=== PATIENT | female | born 1955 | race Caucasian/White ===

== ENCOUNTER 2017-09-13 11:20 | Outpatient (CLI) | payer OTHER | END 2017-09-13 11:21 | disposition home or self-care (01) | LOC: DI 11:20 | PROVIDERS: ATTEND Physician Assistant Medical | DX: Q23.1 Congenital insufficiency of aortic valve (principal); I77.810 Thoracic aortic ectasia | CPT/HCPCS: 93306 ==

== ENCOUNTER 2018-08-01 12:56 | Outpatient (CLI) | payer MEDICARE, OTHER | END 2018-08-01 12:57 | disposition home or self-care (01) | LOC: DI 12:56 | PROVIDERS: ATTEND Physician Assistant Medical | DX: Q23.1 Congenital insufficiency of aortic valve (principal); I77.810 Thoracic aortic ectasia | CPT/HCPCS: 93306 ==

== ENCOUNTER 2019-01-08 11:22 | Outpatient (CLI) | payer MEDICARE, OTHER ==
--- NOTE | 2019-01-08 13:34 | XRAY Report ---
Reason: LBP Procedure Date: 01/08/2019 Accession Number: [id number] / [id number] Procedure: XR - Lumbar Spine Complete CPT Code: FULL RESULT: EXAM: LUMBOSACRAL SPINE RADIOGRAPHY EXAM DATE: 01/08/2019 11:56 AM. CLINICAL HISTORY: Lower back pain. COMPARISONS: LUMBAR SPINE COMPLETE 09/19/2013 12:16 PM. TECHNIQUE: 5 views. FINDINGS: Alignment: The visualized osseous neural foramina are patent on oblique views. No spondylolisthesis or scoliosis. Bones: Five knv-rnx-papinok lumbar vertebral bodies are present. No fractures or bone lesions. Disks: Normal. Disk heights are maintained. Facets: Mild lower lumbar spine facet degenerative changes. Sacroiliac Joints: Unremarkable. Soft Tissues: Normal. The visualized bowel gas pattern is normal. IMPRESSION: Mild degenerative changes. RADIA
== END 2019-01-08 11:23 | disposition home or self-care (01) ==
LOC: DI 11:22
PROVIDERS: ATTEND Family Medicine
DX: M47.9 Spondylosis, unspecified (principal)
CPT/HCPCS: 72110

== ENCOUNTER 2021-03-11 08:00 | Outpatient (CLI) | payer MEDICARE, OTHER ==
--- NOTE | 2021-03-11 16:47 | XRAY Report ---
PROCEDURE: Finger(s) LT INDICATIONS: LEFT THUMB PAIN TECHNIQUE: AP hand, 3 views of the left finger(s) acquired. COMPARISON: None. FINDINGS: No acute fracture. Mild first CMC and triscaphe osteoarthritis. No marginal lucencies to suggest eros ions identified. Soft tissues grossly unremarkable. IMPRESSION: Mild degenerative changes as above. If the patient's pain or other symptoms persist, consider further evaluation with MRI. Reviewed by: Fantasma Doherty MD on 03/11/2021 4:45 PM PDT Approved by: Fantasma Doherty MD on 03/11/2021 4:45 PM PDT Station ID: [id number]
== END 2021-03-11 23:59 | disposition home or self-care (01) ==
LOC: DI.S 08:00
PROVIDERS: ATTEND Emergency Medicine
DX: M79.645 Pain in left finger(s) (principal); M18.12 Unilateral primary osteoarthritis of first carpometacarpal joint, left hand

== ENCOUNTER 2021-06-18 07:23 | Outpatient (CLI) | payer MEDICARE, OTHER ==
--- NOTE | 2021-06-18 12:43 | XRAY Report ---
PROCEDURE: Finger(s) LT INDICATIONS: LEFT THUMB PAIN TECHNIQUE: AP hand, 2 views of the left thumb COMPARISON: None FINDINGS: Bones: No fractures or dislocations. No suspicious bony lesions. Soft tissues: No suspicious soft tissue calcifications. IMPRESSION: No acute abnormality of the left thumb. Reviewed by: Chema Palacios on 06/18/2021 12:42 PM PDT Approved by: Chema Palacios on 06/18/2021 12:42 PM PDT Station ID: [id number]
== END 2021-06-18 23:59 | disposition home or self-care (01) ==
LOC: DI.N 07:23
PROVIDERS: ATTEND Physician Assistant
DX: M79.645 Pain in left finger(s) (principal)

== ENCOUNTER 2021-08-25 12:49 | Outpatient (CLI) | payer MEDICARE, OTHER ==
--- NOTE | 2021-08-25 22:10 | DEXA Report ---
PROCEDURE: Dexa Spine and/or Hip INDICATIONS: POST MENOPAUSAL, OSTEOPOROSIS TECHNIQUE: Dual energy x-ray absorptiometry (DXA) was performed on a [employer] System. Regions measur ed are the AP Spine, femoral neck, and if needed forearm. COMPARISON: 08/24/2017 FINDINGS: Lumbar Spine: Bone Mineral Density 0.836 g/cm/cm,T score -2.9, osteoporosis Left Hip: Bone Mineral Density 0.850 g/cm/cm,T score -1.2, osteopenia Left Femoral Neck: Bone Mineral Density 0.737 g/cm/cm, T score -2.2, osteoporosis Impression: Osteoporosis. Patients with diagnosis of osteoporosis or osteopenia should have regular bone mineral density assess ment. For those eligible for Medicare, routine testing is allowed once every 2 years. Testing frequ ency can be increased for patients who have rapidly progressing disease or for those who are receivin g medical therapy to restore bone mass. Reviewed by: Ray Roberts MD on 08/25/2021 10:09 PM PST Approved by: Ray Roberts MD on 08/25/2021 10:09 PM PST Station ID: [id number]
== END 2021-08-25 12:50 | disposition home or self-care (01) ==
LOC: DI 12:49
PROVIDERS: ATTEND Registered Nurse
DX: M81.0 Age-related osteoporosis without current pathological fracture (principal); Z78.0 Asymptomatic menopausal state

== ENCOUNTER 2022-02-02 16:11 | Outpatient (CLI) | payer MEDICARE, OTHER | END 2022-02-02 16:12 | disposition home or self-care (01) | LOC: LAB.S 16:11 | PROVIDERS: ATTEND Internal Medicine | DX: E03.9 Hypothyroidism, unspecified (principal) | CPT/HCPCS: 36415; 84443 ==

== ENCOUNTER 2022-05-18 13:53 | Outpatient (CLI) | payer MEDICARE, OTHER | END 2022-05-18 13:54 | disposition home or self-care (01) | LOC: LAB.S 13:53 | PROVIDERS: ATTEND Internal Medicine | DX: E03.9 Hypothyroidism, unspecified (principal) | CPT/HCPCS: 36415; 84443 ==

== ENCOUNTER 2022-08-26 14:51 | Outpatient (CLI) | payer MEDICARE, OTHER | END 2022-08-26 14:52 | disposition home or self-care (01) | LOC: LAB.S 14:51 | PROVIDERS: ATTEND Internal Medicine | DX: E03.9 Hypothyroidism, unspecified (principal) | CPT/HCPCS: 36415; 84443 ==

== ENCOUNTER 2023-01-11 15:01 | Outpatient (CLI) | payer MEDICARE, OTHER ==
--- NOTE | 2023-01-11 17:14 | XRAY Report ---
PROCEDURE: Hip w/Pelvis 2-3V RT INDICATIONS: HIP PAIN TECHNIQUE: AP pelvis with lateral view(s) of the right hip(s). COMPARISON: None. FINDINGS: Bones: No fractures or dislocations. Symmetric appearing bilateral hip joint osteoarthritic changes are seen with superior joint space narrowing and subchondral sclerosis. No evidence of avascular nec rosis of femoral head. Pelvic ring appears intact. No suspicious bony lesions. Soft tissues: The visualized bowel gas pattern is normal. No suspicious soft tissue calcifications. IMPRESSION: Symmetric mild to moderate bilateral hip joint osteoarthritis. No pelvic or hip fracture. No hip dislocation. No evidence of avascular necrosis. Reviewed by: Howard Aiken MD on 01/11/2023 5:12 PM PDT Approved by: Howard Aiken MD on 01/11/2023 5:12 PM PDT Station ID: [id number]
== END 2023-01-11 15:02 | disposition home or self-care (01) ==
LOC: DI 15:01
PROVIDERS: ATTEND Internal Medicine
DX: M16.0 Bilateral primary osteoarthritis of hip (principal)

== ENCOUNTER 2023-06-06 16:15 | Outpatient (CLI) | payer MEDICARE, OTHER ==
--- NOTE | 2023-06-06 17:22 | XRAY Report ---
PROCEDURE: Knee 3 View RT INDICATIONS: RIGHT KNEE PAIN TECHNIQUE: 3 views of the right knee(s) were acquired. COMPARISON: None. FINDINGS: Bones: No fractures or dislocations. No suspicious bony lesions. The knee joint spaces appear wel l-preserved. Soft tissues: There is a small right knee knee joint effusion. No suspicious soft tissue calcificati ons or masses. IMPRESSION: Small right knee joint effusion, without an acute bony abnormality identified. If it would be helpful for clinical management decision making, please consider a dedicated, schedule d knee MRI for further evaluation (assuming that there is no contraindication). Reviewed by: Blair Sargent MD on 06/06/2023 4:21 PM YEIMY Approved by: Blair Sargent MD on 06/06/2023 4:21 PM YEIMY Station ID: [id number]
== END 2023-06-06 23:59 | disposition home or self-care (01) ==
LOC: DI.S 16:15
PROVIDERS: ATTEND Physician Assistant Medical
DX: M25.561 Pain in right knee (principal); M25.461 Effusion, right knee

== ENCOUNTER 2023-06-14 21:06 | Outpatient (CLI) | payer MEDICARE, OTHER ==
--- NOTE | 2023-06-15 13:40 | Ultrasound Report ---
PROCEDURE: Duplex Ext Veins Right INDICATIONS: SWELLING RIGHT LOWER LEG TECHNIQUE: Real-time imaging, as well as color and pulse Doppler interrogation, were performed of the lower extr emity deep veins from the inguinal ligament to the popliteal fossa. Attempted visualization of the ca lf veins was performed. COMPARISON: None. FINDINGS: The deep veins are normally compressible, and free of intraluminal thrombus. Color and pu lse Doppler demonstrate normal phasic intraluminal flow. There is normal augmentation response to di stal compression maneuver. IMPRESSION: No deep venous thrombosis of the visualized lower extremity. Reviewed by: Preethi Bettencourt MD on 06/15/2023 1:39 PM PDT Approved by: Preethi Bettencourt MD on 06/15/2023 1:39 PM PDT Station ID: [id number]
== END 2023-06-14 21:07 | disposition home or self-care (01) ==
LOC: DI 21:06
PROVIDERS: ATTEND Physician Assistant Medical
DX: R22.41 Localized swelling, mass and lump, right lower limb (principal)

== ENCOUNTER 2023-06-23 15:00 | Outpatient (CLI) | payer MEDICARE, OTHER | END 2023-06-23 15:01 | disposition home or self-care (01) | LOC: DI 15:00 | PROVIDERS: ATTEND Internal Medicine | DX: Q23.1 Congenital insufficiency of aortic valve (principal); I77.810 Thoracic aortic ectasia | CPT/HCPCS: 93306 ==

== ENCOUNTER 2023-09-03 14:26 | Emergency (ER) | payer MEDICARE, OTHER ==
--- NOTE | 2023-09-03 16:08 | ED Physician Documentation ---
PD HPI LOWER EXT INJURY - Stated complaint Stated Complaint: RT KNEE PX - Chief complaint Chief Complaint: Ext Problem - History obtained from History obtained from: Patient - History of Present Illness PD HPI LOW EXT INJURY LOCATION: Right - Additional information Additional information: 68-year-old female presents with right knee pain. The pain has been present for Years seemingly worse over the last several months. She has been seen several times for right sided pain in the hip, ankle and knee. She states she cannot really say if she has pain in the knee just her entire leg is uncomfortable although it is not new. She sustained no new injuries, no twists or falls. She has noted no new swelling, no erythema. She has been seen here as well as via her PCP for this issue and states that she has been referred to Ortho but does not have an appointment yet. did not take that she believes that she has to have an MRI but that too has not been scheduled. Patient takes occasional Tylenol, no other treatment for this issue. She was seen Several months ago for similar pain and had a negative right leg ultrasound as well as stable right knee x-ray. PD PAST MEDICAL HISTORY - Past Medical History Past Medical History: Yes Cardiovascular: None Respiratory: None Endocrine/Autoimmune: HyPOthyroidism GI: None : None HEENT: None Psych: None Musculoskeletal: None Derm: None - Past Surgical History Past Surgical History: Yes General: Colonoscopy HEENT: Tonsil/Adenoidectomy - Present Medications Home Medications: Ambulatory Orders Medication Instructions Recorded Confirmed Alprazolam [Xanax] 1 mg PO DAILY PRN 06/04/22 09/03/23 Levothyroxine Sodium [Synthroid] 175 mcg PO DAILY 09/03/23 09/03/23 Oxycodone HCl/Acetaminophen 1 - 2 each PO Q6H PRN #14 tablet 09/03/23 [Percocet 5-325 mg Tablet] buPROPion HCL [Wellbutrin Xl] 300 mg PO DAILY 09/03/23 09/03/23 predniSONE [Deltasone] 40 mg PO DAILY 5 Days #10 tablet 09/03/23 - Allergies Allergies/Adverse Reactions: Allergies Allergy/AdvReac Type Severity Reaction Status Date / Time No Known Drug Allergies Allergy Verified 09/03/23 14:42 - Social History Does the pt smoke?: No Smoking Status: Never smoker - POLST Patient has POLST: No PD ED PE NORMAL - Vitals Vital signs reviewed: Yes - General General: Alert and oriented X 3, No acute distress, Well developed/nourished - HEENT HEENT: Atraumatic, Moist mucous membranes - Derm Derm: Normal color, Warm and dry, No rash - Extremities Extremities: No deformity, No tenderness to palpate, No calf tenderness / cord, Other (There is no erythema of the right leg, no evidence deformity. She does not have tenderness to palpation of the leg but she does have tenderness with flexion extension. No obvious laxity, limited Raymond's test due to discomfort.) Results - Vitals Vitals: Vital Signs - 24 hr 09/03/23 09/03/23 14:42 16:07 Temperature 36.5 C 36.5 C Heart Rate 96 85 Respiratory 16 16 Rate Blood Pressure 120/63 113/71 O2 Saturation 100 99 Oxygen O2 Source Room air PD Medical Decision Making - ED course Complexity details: reviewed old records, considered differential, d/w patient ED course: 68-year-old female presents with chronic right leg pain, sometimes in the knee, hip or ankle. She sustained no acute injuries, no trauma. She has been evaluated several times in the past with stable x-rays negative ultrasound and Has been referred to orthopedic surgery And has seen her PCP for this issue. It appears that the pain is stable and nothing has changed, per say, but she is understandably frustrated by lack of progress. I have encouraged the patient to continue supportive measures, we talked about getting an assistive device at home as she does have a number of stairs to go up and down which may be causing exacerbation of her pain, recommended cool compress, Tylenol and ibuprofen, she could try topical pain reliever. I do believe she needs an MRI though this does not need to be done on an emergent basis and she can follow-up with PCP and Ortho for this. She was encouraged to schedule follow up with ortho as she has already been referred. She may benefit from physical therapy as well, and weight loss would likely be beneficial. Departure - Departure Disposition: 01 Home, Self Care Clinical Impression: Knee pain, right Qualifiers: Chronicity: chronic Qualified Code(s): M25.561 - Pain in right knee Condition: Good Instructions: Knee Pain Prescriptions: predniSONE [Deltasone] 40 mg PO DAILY 5 Days #10 tablet Oxycodone HCl/Acetaminophen [Percocet 5-325 mg Tablet] 1 - 2 each PO Q6H PRN #14 tablet PRN Reason: pain Comments: Please call to schedule follow up with ortho as previously planned. You may need an MRI but this does not need to be done emergently in the ER. I have given you a short course of prednisone and pain medication. Please try to elevate the leg, use a cool compress, and avoid stairs as much as you can for the next few weeks. I am prescribing a short course of narcotic pain medication for you. These are potentially dangerous and addictive medications that should be used carefully. These medications may constipate you. Take an zlzs-uem-vjehomw stool softener (docusate) twice daily with plenty of water while taking these medications. If you go 24 hours without a bowel movement, take efit-utd-kurrgqf miralax, per package instructions. Do not drink or drive while taking these medications. If you received narcotic or sedating medications while in the emergency department, do not drive for 24 hours. Store this medication in a safe, secure place and out of reach of children. It is a violation of federal law to give or sell this medication to another person or to use in a manner other than prescribed. The ED will not refill narcotic prescriptions, including prescriptions lost or stolen. To dispose of unwanted medications: 1. [facility] provides a drop box for medication in pill form only (no liquids) 8:00 am to 4:30 p.m. Tuesday-Tuesday in the lobby of the [facility], [address] [place] [address]. Empty pills into ziplock bag before disposal. Call [phone] for information. 2.[employer] is a free service available to all [facility] residents. Go to [email or web address] Note that many narcotic pain relievers also contain Tylenol/acetaminophen. Please ensure that your total dose of acetaminophen from all sources does not exceed 3 g (3000 mg) per day. Forms: PCP List Discharge Date/Time: 09/03/23 16:26
[2023-09-03 16:10] VITALS: BP 113/71; O2SAT 99
== END 2023-09-03 16:26 | disposition home or self-care (01) ==
LOC: ED 14:26
DX: M25.561 Pain in right knee (principal); E03.9 Hypothyroidism, unspecified; Z79.899 Other long term (current) drug therapy
CPT/HCPCS: 99282; 99283

== ENCOUNTER 2023-09-09 07:22 | Outpatient (CLI) | payer MEDICARE, OTHER ==
--- NOTE | 2023-09-09 09:23 | MRI Report ---
PROCEDURE: KNEE WO - RT INDICATIONS: RIGHT KNEE PAIN TECHNIQUE: Noncontrast sagittal PD fast spin echo and T2 fast spin echo with fat saturation, sagittal 3-D spoile d GE with fat saturation; coronal T1 spin echo and PD fast spin echo with fat saturation, and axial P D fast spin echo with fat saturation through the knee. COMPARISON: Right knee radiographs 06/06/2023 FINDINGS: Image quality: Excellent. Anterior cruciate ligament: Intact. Posterior cruciate ligament: Intact. Medial collateral ligament: Thickening the proximal medial collateral ligament without surrounding e douglas is most likely secondary to a remote prior low-grade sprain. Lateral collateral ligament: Intact. Medial meniscus: There is high-grade versus complete radial tearing of the medial meniscus at the po sterior root attachment without significant meniscal extrusion. Lateral meniscus: Intact. Medial and lateral tendons: The semimembranosus tendon insertions appear intact. Visualized portion s of the pes anserinus tendons appear normal. The popliteus tendon appears intact. Iliotibial band appears normal. Anterior structures: Mild patella naty. The distal quadriceps tendon is intact. No patellar subluxat ion. No significant femoral trochlear dysplasia or ventral trochlear prominence. Mild edema at supe rolateral aspect of the infrapatellar fat pad can be seen in the setting of lateral femoral condyle-p atellar tendon friction syndrome. Bones: No acute trabecular bone injury or fracture. Medial femorotibial cartilage: There is high-grade partial thickness cartilage irregularity in the w eightbearing portion of the medial femorotibial compartment with mild subchondral edema. Lateral femorotibial cartilage: Mild partial thickness cartilage irregularity is seen in the posteri or to far posterior portion of the lateral femorotibial compartment. Patellofemoral cartilage: There is deep cartilage fissuring at the median ridge of the patella coreen rning partial-thickness cartilage irregularity. Partial-thickness cartilage irregularity is seen in t he trochlear groove. Soft tissues: There is a small joint effusion. There is a small medial popliteal cyst. The musculat ure surrounding the knee is normal in bulk. There is mild nonspecific prepatellar subcutaneous soft t issue edema. IMPRESSION: 1.High-grade versus complete radial tearing at the medial meniscus at the posterior root attachment. No significant meniscal extrusion. 2.Remote prior grade 1 sprain of the proximal medial collateral ligament. 3.Mild patella naty. Mild edema at superolateral aspect of the infrapatellar fat pad can be seen in t he setting of lateral femoral condyle-patellar tendon friction syndrome. 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 Grade II chondromalacia is seen in the lateral and anterior compartments. 5.Small joint effusion. Small medial popliteal cyst. Reviewed by: Josh Srivastava MD on 09/09/2023 9:22 AM PST Approved by: Josh Srivastava MD on 09/09/2023 9:22 AM PST Station ID: [id number]
== END 2023-09-09 07:23 | disposition home or self-care (01) ==
LOC: DI 07:22
PROVIDERS: ATTEND Internal Medicine
DX: S83.241A Other tear of medial meniscus, current injury, right knee, initial encounter (principal); S83.411D Sprain of medial collateral ligament of right knee, subsequent encounter; M94.261 Chondromalacia, right knee; M25.461 Effusion, right knee; M71.21 Synovial cyst of popliteal space [Baker], right knee

== ENCOUNTER 2023-09-29 08:00 | Outpatient (CLI) | payer MEDICARE, OTHER ==
--- NOTE | 2023-09-29 13:24 | XRAY Report ---
PROCEDURE: Knee 2 View RT INDICATIONS: RIGHT KNEE PAIN, BILAT AP RIGHT TUNNEL ONLY TECHNIQUE: One view of the right knee was acquired. COMPARISON: None. FINDINGS: Bones: No fractures or dislocations. No suspicious bony lesions. Mild lateral subluxation of the tibia relative to the femur, resulting in narrowing of the medial aspect of the lateral compartment. Soft tissues: No knee joint effusion. No suspicious soft tissue calcifications or masses. IMPRESSION: Mild lateral subluxation of the tibia relative to the femur narrows the medial aspect of the lateral compartment. Reviewed by: Ton Mcghee MD on 09/29/2023 1:22 PM PST Approved by: Ton Mcghee MD on 09/29/2023 1:22 PM PST Station ID: [id number]
== END 2023-09-29 23:59 | disposition home or self-care (01) ==
LOC: DI.WOS 08:00
PROVIDERS: ATTEND Physician Assistant Surgical
DX: S83.141A Lateral subluxation of proximal end of tibia, right knee, initial encounter (principal)

== ENCOUNTER 2023-10-10 12:02 | Emergency (ER) | payer MEDICARE, OTHER ==
[2023-10-10 12:34] VITALS: BP 106/74; O2SAT 98
[2023-10-10] MEDS ORDERED: TETANUS/DIPHTHERIA/PERTUSSIS 0.5 ML SYRINGE IM ONE (12:38)
--- NOTE | 2023-10-10 12:40 | ED Physician Documentation ---
PD HPI LOWER EXT INJURY - Stated complaint Stated Complaint: RT FOOT PX - Chief complaint Chief Complaint: Ext Problem - History obtained from History obtained from: Patient - Additional information Additional information: 68-year-old female presents concerned that there may be a foreign body in her right foot. 2 days ago she was cleaning the kitchen and stepped on "something sharp", however she does not know what she stepped on. She reports that the area bled for a while and stopped, but it is sore and painful to walk on. She does not think she is up-to-date on her tetanus vaccination. Review of Systems Constitutional: denies: Fever, Chills Respiratory: denies: Dyspnea, Cough GI: denies: Abdominal Pain, Nausea, Vomiting Musculoskeletal: reports: Extremity pain. denies: Neck pain, Back pain, Joint pain, Extremity swelling PD PAST MEDICAL HISTORY - Past Medical History Cardiovascular: None Respiratory: None Endocrine/Autoimmune: HyPOthyroidism GI: None : None HEENT: None Psych: None Musculoskeletal: None Derm: None - Past Surgical History Past Surgical History: Yes General: Colonoscopy HEENT: Tonsil/Adenoidectomy - Present Medications Home Medications: Ambulatory Orders Medication Instructions Recorded Confirmed Alprazolam [Xanax] 1 mg PO DAILY PRN 06/04/22 09/03/23 Levothyroxine Sodium [Synthroid] 175 mcg PO DAILY 09/03/23 09/03/23 Oxycodone HCl/Acetaminophen 1 - 2 each PO Q6H PRN #14 tablet 09/03/23 [Percocet 5-325 mg Tablet] buPROPion HCL [Wellbutrin Xl] 300 mg PO DAILY 09/03/23 09/03/23 predniSONE [Deltasone] 40 mg PO DAILY 5 Days #10 tablet 09/03/23 - Allergies Allergies/Adverse Reactions: Allergies Allergy/AdvReac Type Severity Reaction Status Date / Time No Known Drug Allergies Allergy Verified 09/03/23 14:42 - Social History Does the pt smoke?: No Smoking Status: Never smoker - POLST Patient has POLST: No PD ED PE NORMAL - Vitals Vital signs reviewed: Yes - General General: Alert and oriented X 3, No acute distress, Well developed/nourished - Respiratory Respiratory: No respiratory distress - Derm Derm: Normal color, Warm and dry, Other (punctate area on sole of R foot. 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 X-ray showed no foreign body, I performed [id number] ultrasound at bedside, I was unable to find any foreign body visible on ultrasound imaging either. Patient relieved, stating she just wanted to make sure her foot was evaluated. Tetanus updated. Recommended Tylenol, Ice PRN, and elevation. Signs and symptoms of infection discussed at bedside. Departure - Departure Disposition: 01 Home, Self Care Clinical Impression: Foot contusion Condition: Stable Instructions: ED Contusion Foot Forms: PCP List Discharge Date/Time: 10/10/23 13:37
--- NOTE | 2023-10-10 12:54 | XRAY Report ---
PROCEDURE: Foot 1-2V RT INDICATIONS: POSS EMBEDDED GLASS ON SOLE TECHNIQUE: 2 views of the foot were acquired. COMPARISON: None. FINDINGS: Bones: No fractures or dislocations. No suspicious bony lesions. Hallux valgus. First MTP osteoar thritis. Soft tissues: No suspicious soft tissue calcifications or masses. No radiopaque foreign body. IMPRESSION: No radiopaque foreign body. Reviewed by: Chilo Hugo MD on 10/10/2023 12:53 PM PST Approved by: Chilo Hugo MD on 10/10/2023 12:53 PM PST Station ID: [id number]
== END 2023-10-10 13:37 | disposition home or self-care (01) ==
LOC: ED 12:02
DX: S90.31XA Contusion of right foot, initial encounter (principal); W22.8XXA Striking against or struck by other objects, initial encounter; Y93.E9 Activity, other interior property and clothing maintenance; Y92.000 Kitchen of unspecified non-institutional (private) residence as the place of occurrence of the external cause
CPT/HCPCS: 90471; 99282; 99283

== ENCOUNTER 2023-11-29 10:30 | Outpatient (CLI) | payer MEDICARE, OTHER ==
--- NOTE | 2023-11-29 16:18 | XRAY Report ---
PROCEDURE: Hip 2 View LT INDICATIONS: LEFT HIP PAIN TECHNIQUE: 2 view(s) of the hip were acquired. COMPARISON: X-ray left hip, 09/19/2013 x-ray sacrum iliac joints, 09/19/2013. FINDINGS: Bones: No fractures or dislocations. No suspicious bony lesions. The visualized pelvic ring appear s intact. Mild degenerative joint disease in hips and sacroiliac joints bilaterally. Soft tissues: No suspicious soft tissue calcifications or masses. IMPRESSION: 1. No acute bony abnormality. 2. Mild degenerative joint disease in hips and sacrum joints bilaterally. Reviewed by: Neelam Steele MD on 11/29/2023 4:17 PM PST Approved by: Neelam Steele MD on 11/29/2023 4:17 PM PST Station ID: [id number]
== END 2023-11-29 23:59 | disposition home or self-care (01) ==
LOC: DI.WOS 10:30
PROVIDERS: ATTEND Physician Assistant Surgical
DX: M16.0 Bilateral primary osteoarthritis of hip (principal); M47.898 Other spondylosis, sacral and sacrococcygeal region

== ENCOUNTER 2024-03-22 06:57 | Day surgery (SDC) | payer MEDICARE, OTHER ==
[2024-03-22] MEDS: LACTATED RINGERS 1,000 ML IV ONE ×2 (07:05→08:57)
[2024-03-22] MEDS: PROPARACAINE 0.5% OPHTH DROPS 15 ML ONE (07:06)
[2024-03-22] MEDS: PHENYLEPHRINE 2.5% OPHTH 2 ML DROPS ONE (07:06)
[2024-03-22] MEDS: KETOROLAC 0.45% OPHTH DROPS ONE (07:06)
[2024-03-22] MEDS: CYCLOPENTOLATE 1% OPHTH DROPS 2 ML ONE (07:33)
[2024-03-22] MEDS ORDERED: EPINEPHrine 1 MG/ML AMP ONE (07:50)
[2024-03-22] MEDS ORDERED: TRIAMCIN/MOXIFLOX OPHTHALMIC 0.6 ML VIAL IO ONE (07:50)
[2024-03-22] MEDS ORDERED: BRIMONIDINE 0.2% OPHTH DROPS 5 ML ONE (07:50)
[2024-03-22] MEDS ORDERED: BSS/LIDOCAINE/EPINEPHRINE 1 ML VIAL ONE (07:50)
[2024-03-22] MEDS ORDERED: TIMOLOL 0.5% OPHTH DROPS ONE (07:50)
[2024-03-22] MEDS: TIMOLOL 0.5% OPHTH DROPS OPTH ONE (08:04)
[2024-03-22] MEDS: BRIMONIDINE 0.2% OPHTH DROPS 5 ML OPTH ONE (08:04)
[2024-03-22] MEDS: EPINEPHrine 1 MG/ML AMP IR ONE (08:04)
--- NOTE | 2024-03-22 08:04 | ANESTHESIA ---
Pre-Anesthesia VS, & Labs - Diagnosis RIGHT EYE CATARACT - Procedure RIGHT CATARACT EXTRACTIOL/IOL Vital Signs: Temp Pulse Resp BP Pulse Ox O2 Flow Rate 36.4 C L 67 12 115/70 100 03/22/24 07:10 03/22/24 07:10 03/22/24 07:10 03/22/24 07:10 03/22/24 07:10 Height: 5 ft 4 in Weight (kg): 80.9 kg Body Mass Index: 30.6 BMI Classification: Obese - NPO >8 hours - Is Patient ?: No Home Medications and Allergies Home Medications: Ambulatory Orders Acyclovir 400 mg PO BID 03/21/24 Magnesium 400 mg PO DAILY 03/21/24 Alprazolam [Xanax] 1 mg PO DAILY PRN 06/04/22 Levothyroxine Sodium [Synthroid] 175 mcg PO DAILY 09/03/23 buPROPion HCL [Wellbutrin Xl] 300 mg PO DAILY 09/03/23 Acyclovir 400 mg PO BID 03/21/24 Magnesium 400 mg PO DAILY 03/21/24 Allergies/Adverse Reactions: Allergies Allergy/AdvReac Type Severity Reaction Status Date / Time No Known Drug Allergies Allergy Verified 09/03/23 14:42 Anes History & Medical History - Anesthetic History Anesthesia Complications: reports: No previous complications Family history of Anesthesia Complications: Denies - Medical History Cardiovascular: reports: Murmur (ACTIVE, NO LIMITIONS), Other Pulmonary: reports: None Gastrointestinal: reports: None Urinary: reports: None Musculoskeletal: reports: Osteoarthritis, Other Endocrine/Autoimmune: reports: HyPOthyroidism Skin: reports: None Smoking Status: Never smoker Psychosocial: reports: No issues indicated - Surgical History General: reports: Colonoscopy Eyes Ears Nose Throat (EENT): reports: Tonsil/Adenoidectomy Results - EKG Results EKG Comparison: Reviewed EKG Exam General: Alert, Oriented x3 Dental: WNL Mouth Openin Fingerbreadth Neck Mobility: Reduced Mallampati classification: III Thyromental Distance: less than 4 cm Plan Anesthesia Type: MAC Consent for Procedure(s) Verified and Reviewed: Yes Code Status: Attempt Resuscitation ASA classification: 2-Mild systemic disease Is this case an emergency?: No
[2024-03-22] MEDS: TRIAMCIN/MOXIFLOX OPHTHALMIC 0.6 ML VIAL IO ONE (08:05)
[2024-03-22] MEDS: PROPARACAINE 0.5% OPHTH DROPS 15 ML RIGHTEYE ONE (08:05)
[2024-03-22] MEDS: VANCOMYCIN OPHTH (TOPICAL) 10 MG/ML SYRINGE TOP ONE (08:05)
[2024-03-22] MEDS: BSS/LIDOCAINE/EPINEPHRINE 1 ML SYRINGE IO ONE (08:05)
[2024-03-22] MEDS ORDERED: MIDAZOLAM 2 MG/2 ML VIAL ONE (08:12)
[2024-03-22] MEDS ORDERED: fentaNYL 100 MCG/2 ML VIAL ONE (08:22)
[2024-03-22] MEDS ORDERED: LIDOCAINE-PF 2% 10 ML AMP SUBQ ONE (08:50)
[2024-03-22] MEDS ORDERED: PROPOFOL 200 MG/20 ML VIAL IVP ONE (08:51)
--- NOTE | 2024-03-22 09:01 | OPERATIVE REPORT ---
Operative Report - Other Other Information/Narrative: Date of Surgery: 03/22/24 Preop Dx: Visually significant cataract right eye. This was the first cataract surgery. Postop Dx: Same Procedure: Phacoemulsification with posterior chamber intraocular lens implant right eye Surgeon: Dr. Christian Basilio Anesthesia: Monitored anesthesia care Complications: None Operative Indications: This is a 68-year-old F with progressive vision loss in the right eye due to 2-3+ nuclear sclerotic and 1-2+ anterior subcapsular cataract. Best corrected visual acuity was 20/40 with glare to 20/80 vision in the right eye. Indications for surgery were: - Overall decrease in vision - Difficulty seeing words on a computer screen - Difficulty reading - Difficulty seeing words, closed captions, or game scores on TV - Difficulty seeing street signs - Difficulty driving in low light or at night - Difficulty driving at night because of headlights from other vehicles - Difficulty with glare or bright lights in any situation The patient was consented at length concerning the risks and benefits of cataract surgery after which the patient expressed a desire to proceed with surgery. Operative Procedure: The patient was taken into OR#3 and placed under monitored anesthesia care. A surgical time-out was conducted confirming correct patient, correct procedure, and correct surgical site. The patient was given topical anesthesia and then prepped and draped in the usual sterile fashion. The eye was entered at the 6 and 3 oclock positions. Intracameral Shugarcaine was injected into the anterior chamber followed by a dispersive viscoelastic. A continuous-tear curvilinear capsulorhexis was performed. The nucleus was hydrodissected and phacoemulsified. The cortex was evacuated using automated infusion and aspiration. A cohesive viscoelastic was injected into the capsular bag and a 16.0 diopter intraocular lens was inserted into the bag. Infusion and aspiration were used to evacuate the viscoelastic materials from the eye. The wounds were hydrated and the eye inflated to physiologic pressure using balanced salt solution. Approximately 0.25ml of a mixture of triamcinolone and moxifloxacin was injected trans-sclerally into the vitreous in the inferotemporal quadrant using a 30 gauge cannula. An additional 0.25ml of a m ixture of triamcinolone and moxifloxacin was injected subconjunctivally in the superior quadrant for infection and inflammation prophylaxis. Wound integrity was checked with Weck-Belia sponges. The patient was taken from the operating room in good condition and given post-op instructions.
[2024-03-22] MEDS ORDERED: NALOXONE 0.4 MG/ML VIAL IVP PRN (09:03)
[2024-03-22] MEDS ORDERED: MORPHINE 2 MG/ML CARPUJECT IVP PRN (09:03)
[2024-03-22] MEDS ORDERED: fentaNYL 100 MCG/2 ML VIAL IVP PRN (09:03)
[2024-03-22] MEDS ORDERED: ATROPINE ABBOJECT 1 MG/10 ML SYRINGE IVP PRN (09:03)
[2024-03-22] MEDS ORDERED: ONDANSETRON 4 MG/2 ML VIAL IVP PRN (09:03)
[2024-03-22] MEDS ORDERED: ePHEDrine 50 MG/ML VIAL IVP PRN (09:03)
[2024-03-22] MEDS ORDERED: METOCLOPRAMIDE 10 MG/2 ML VIAL IVP PRN (09:03)
[2024-03-22] MEDS ORDERED: HYDROmorphone 0.5 MG/0.5 ML SYRINGE IVP PRN (09:03)
[2024-03-22 09:58] VITALS: BP 135/67; O2SAT 98
[2024-03-22] MEDS ORDERED: LACTATED RINGERS 1,000 ML IV SCH (10:00)
--- NOTE | 2024-03-22 16:10 | ANESTHESIA POST OP EVALUATION ---
Anesthesia Post Eval - Post Anesthesia Eval Vitals: Last Vital Signs Temp 36.2 C L 03/22/24 09:30 Pulse 72 03/22/24 09:30 Resp 16 03/22/24 09:30 BP 135/67 H 03/22/24 09:30 Pulse Ox 98 03/22/24 09:30 O2 Flow Rate CV Function Including HR & BP: Stable Pain Control: Satisfactory Nausea & Vomiting: Negative Mental Status: Baseline Respiratory Status: Airway Patent Hydration Status: Satisfactory Anesthesia Complications: None - Other Details/Therapies Other Details/Therapies: pt did not tolerate MAC for cataract; needed a GA/LMA for this cataract
== END 2024-03-22 06:58 | disposition home or self-care (01) ==
LOC: SDS 06:57
PROVIDERS: ATTEND Ophthalmology
DX: H25.811 Combined forms of age-related cataract, right eye (principal); E66.9 Obesity, unspecified; Z68.30 Body mass index [BMI] 30.0-30.9, adult
CPT/HCPCS: 66984; A9270; J3490; J7120; V2787